=== PATIENT | female | born 1990 | race Caucasian/White ===

== ENCOUNTER 2023-09-26 10:52 | Day surgery (SDC) | payer BC ==
[2023-09-24 08:42] LABS: Specific Gravity 1.011 (1.005-1.030); Urine Bilirubin NEGATIVE (Negative); Urine Blood Negative (Negative); Urine Clarity Clear (Clear); Urine Color Light-Yellow (Yellow); Urine Glucose NEGATIVE (Negative); Urine Protein NEGATIVE (Negative); Urine Urobilinogen Normal (Normal)
[2023-09-26] MEDS: SCOPOLAMINE HYDROBROMIDE PATCH TD ONE (11:25)
[2023-09-26] MEDS: Ringers Lactate 1,000 ML IV ONE ×2 (11:25→14:30)
[2023-09-26] MEDS ORDERED: ONDANSETRON 4 MG/2 ML VIAL ONE (11:35)
[2023-09-26] MEDS ORDERED: KETAMINE HCL IN 0.9 % NACL 50 MG/5 ML SYRINGE IV ONE (11:35)
[2023-09-26] MEDS ORDERED: FENTANYL CITR 100 MCG/2 ML ONE (11:35)
[2023-09-26] MEDS ORDERED: ROCURONIUM 50 MG/5 ML VIAL IV ONE (11:35)
[2023-09-26] MEDS ORDERED: propofoL 200 MG/20 ML VIAL IV ONE (11:35)
[2023-09-26] MEDS ORDERED: LIDOCAINE 1% MPF 5 ML VIAL ONE (11:35)
[2023-09-26] MEDS ORDERED: dexAMETHasone 10 MG/ML VIAL ONE (11:35)
[2023-09-26] MEDS ORDERED: MIDAZOLAM HCL 2 MG/2 ML INJ ONE (11:36)
[2023-09-26] MEDS: CEFAZOLIN SODIUM 2 GM/VIAL ONE (11:42)
[2023-09-26] MEDS: BUPIVACAINE 0.25% PF 30 ML VIAL ONE (11:44)
[2023-09-26 12:15] LABS: Urine Specific Gravity/Preg >1.030 (1.005-1.030)
[2023-09-26] MEDS ORDERED: METHYLENE BLUE 1% 10 ML VIAL ONE (12:55)
[2023-09-26] MEDS: METHYLENE BLUE 1% 10 ML VIAL ONE (13:00)
[2023-09-26] MEDS ORDERED: NA CHLORIDE 0.9% 1,000 ML ONE (13:23)
[2023-09-26] MEDS ORDERED: KETOROLAC 30 MG/ML INJ ONE (14:47)
[2023-09-26] MEDS: MORPHINE 4 MG/ML SYR ONE ×2 (15:41→15:58)
[2023-09-26] MEDS ORDERED: PROMETHAZINE INJ 25 MG/ML AMP IV PRN (16:03)
[2023-09-26] MEDS ORDERED: IBUPROFEN 200 MG TAB PO PRN (16:03)
[2023-09-26] MEDS ORDERED: HYDROCODONE/APAP 5/325 MG TAB PO PRN (16:03)
[2023-09-26] MEDS ORDERED: MEPERIDINE HCL 25 MG/ML SYR IM PRN (16:03)
[2023-09-26] MEDS ORDERED: PROMETHAZINE 25 MG TABLET PO PRN (16:03)
--- NOTE | 2023-09-26 16:10 | P.BOP ---
Preoperative diagnosis: pelvic pain, post coital bleeding,AUB-O, secondary infertility, pelvic mass Postoperative diagnosis: same and right complex ovarian mass Primary procedure: Diag hysteroscopy,Diag laparoscopy,RSO,contained retrieval of mass -minilap Laboratory Chief: Aurelia Bermudez Estimated blood loss: 25 Specimen: right tube and ovary with washings and cyst fluid Findings: right ovarian large cystic mass+7-8 cm solid component sup/lateral Anesthesia: General Complications: None Fluids & blood products: 1000 Transferred to: Recovery Room Condition: Good
[2023-09-26] MEDS ORDERED: metroNIDAZOLE 500 MG TABLET PO SCH (16:15)
[2023-09-26 18:05] VITALS: BP 124/66; TEMP 97.9; O2SAT 97
--- NOTE | 2023-09-27 06:26 | OP ---
Date of Procedure: 09/26/2023 Surgeon: Nusrat Jesus MD Manager Clinical Pharmacy: [facility] Preoperative Diagnoses: Pelvic pain, postcoital bleeding, AUB-O (menorrhagia), secondary infertility , and pelvic mass. Postoperative Diagnoses: Pelvic pain, postcoital bleeding, AUB-O (menorrhagia), secondary infertilit y, pelvic mass, and right complex ovarian mass. Procedures Performed: 1.Diagnostic hysteroscopy. 2.Diagnostic laparoscopy. 3.Right salpingo-oophorectomy. 4.Contained retrieval of the mass in a bag using a mini lap incision in the suprapubic region in a t ransverse fashion. Anesthesia: General endotracheal. Specimens: Right tube and ovary with pelvic washings and cyst fluid. Findings: Right large ovarian cystic mass that is about 10 cm in the pelvis and then a right upper l ateral, more solid-appearing mass, 7 to 8 cm, abutting the right pelvic sidewall. The ureter had to be dissected free at the level of the pelvic brim in order to make a good window for the ovarian pedi kilo and was taken down safely. The left tube and ovary were completely unremarkable. Uterus through the hysteroscope appeared to be mostly normal inside the cavity without any masses; however, suspici on of possible bicornuate uterus, which on laparoscopic exam was still suspicious for it with a small indentation at the level of the fundus. Unable to differentiate if there was a leiomyoma or it is a bicornuate uterus. The specimen was placed in a laparoscopic 15 bag and removed without any spillage with a mini lap in the suprapubic area. The cyst was aspirated within the bag, and all care was taken to remove all the instruments and change all gloves that were used for specimen retrieval. Drains: No drains. Complications: No complications. Estimated Blood Loss: Minimal. Fluids: 1000 Urine Output: 300 Transferred to the recovery room in a stable condition. Indications: The patient is a 33-year-old, 1, para 1, incidentally found to have a pelvic ma ss on pelvic exam, confirmed on transvaginal ultrasound. Given her entire history, discussed about t he need for removal of the mass, which appeared to be a tubal mass based on its character as viewed o n the ultrasound, but she did get counseled about a paraovarian or ovarian mass, and that we would re move this based on the necessity of the tumor as visualized. (She was consented for her motivation; however, this was not performed. The left ovary and tube were unremarkable). After informed consent was re-verified in the preoperative area, she was consented for diagnostic hys teroscopy, diagnostic laparoscopy, and removal of the cyst, possible tube and ovary were all reviewed with the patient, chromotubation was to be performed if the tube has suspicion of an occlusion, poss ible endometriosis excision as needed. Procedure In Detail: After informed consent was re-verified, she was taken back to OR, placed in a s upine fashion on the operating room table. After general anesthesia was given, she was placed in nallely elvira lithotomy position using Waldo stirrups. Abdomen was prepped with ChloraPrep; vulva, vagina, and perineum with Betadine. The patient was draped in a sterile fashion. Speculum was placed to expose the cervix. Anterior lip was grasped with single-tooth tenaculum and dilated to 16-D[place]iboutian. The ravinder víctor was completely deviated to the patient's left. Diagnostic SlimLine hysteroscope was introduced a nd the cavity was unremarkable with suspicion of bicornuate uterus. No masses. Scope removed. VCar e uterine diagnostic manipulator was introduced and fixed in place. Abrams was placed to drain the bl adder and attached to a drainage bag. This area was covered. A 1 cm infraumbilical incision was made with the scalpel. Then, a left lower quadrant 5 and a suprap ubic 5 ports were placed. After placing the patient in Trendelenburg, all upper abdomen was surveyed and was unremarkable. Omentum unremarkable as well. A large pelvic mass was visualized. I was abl e to retract all the bowel superiorly into the upper pelvic area. The appendix appeared to be slight ly dilated, but no pathological erythema. Mucinous tumor was visualized. This was retracted into th e upper abdomen. A 5 left upper quadrant and later a 5 right lower quadrant ports were placed under direct vision, [facility] showed both 5 ports for access to the tumor as high as this one was. The distal round ligament at the level medial to the internal inguinal ring was cauterized. Without severing this, I went ahead and opened the peritoneum superior to it. The peritoneum was taken down by opening the both layers and coming down parallel to the IP ligament. Then, on the medial aspect, I went in to identify the internal iliac and crossing of the ureter over the bifurcation of the iliac s. The ureter was followed and the peritoneum opened between the ureter and the IP, and this dissect ion was performed into the pelvis the ureter. Once this was clear, I had an open window t o take down the uterine vessels. Then went on to identify the utero-ovarian ligament. This was ezequiel red and the tube was also taken down with the LigaSure. All the way the dissection was brought down to isolate the ovarian mass on the pedicle of the infundibulopelvic ligament. Here, this was cauteri zed with the help of bipolar LigaSure, and specimen detached and placed in the upper abdomen. The suprapubic 5 port changed to 12 port and a 15 mm bag was introduced through it. The specimen was carefully placed in the bag, entirely closed completely, and retracted through the suprapubic incisi on with the strings and left intact. Then, all the ports were removed under direct vision after thor ough irrigation and suction were performed and hemostasis was secured. No evidence of any endometrio sis was noted. Gas was desufflated. The patient was flattened out and 4 cm on each side of the suprapubic port, the incision was extended on the skin, subcutaneous tissue, fascia and the rectus muscle was in the midline. They w ere dissected from the midline underneath the fascia. Then, the peritoneum was entered through the p ort site and the incision extended, and the bag was opened out to the outside and held high with the Jen clamps as well as hemostats. Then, a small puncture wound was made on the ovarian cyst. Initi ally, this was made on the firmer part of the tumor, but then clearly once this was rotated, I was ab le to get the cyst to drain. Once all the fluid had drained, then the specimen was retrieved through the incision without any rupture spillage. The suction tip, including all the instruments and glove s were all removed and exchanged to fresh ones. The peritoneum was closed with the help of 3-0 Monocryl, the rectus muscles brought to with 3-0 chrom ic, fascial incision with 0 Vicryl in a continuous running fashion, subcutaneous tissues with 3-0 chr omic, and then skin with 4-0 Monocryl. All other skin incisions were closed with the help of 5-0 Mon ocryl after closing the umbilical fascial site with 0 Vicryl's. Steri-Strips and gauze were placed. The manipulator and the Abrams were removed. Instrument, needle, and sponge counts were correct at th e end of the case. The patient and the were debriefed about her procedure postoperatively. She will follow up in 1 week, path results. Baseline CA-125 as needed. Referral to oncologist if it is borderline or malignant cancer. If it is benign, then she just needs surveillance on the other o vary without any further intervention, and we can plan to do an HSG or refer her to an infertility sp ecialist. TANISHA/MELVIN Voice ID: [id number] Report ID: [id number]
== END 2023-09-26 17:25 | disposition home or self-care (01) ==
LOC: OR 10:52
PROVIDERS: ATTEND Obstetrics & Gynecology
PROC: 0UT04ZZ Resection of Right Ovary, Percutaneous Endoscopic Approach (ICD-10-PCS; 2023-09-26)
PROC: 0UJD8ZZ Inspection of Uterus and Cervix, Via Natural or Artificial Opening Endoscopic (ICD-10-PCS; 2023-09-26)
PROC: 0WBH0ZZ Excision of Retroperitoneum, Open Approach (ICD-10-PCS; 2023-09-26)
PROC: 0UT54ZZ Resection of Right Fallopian Tube, Percutaneous Endoscopic Approach (ICD-10-PCS; principal; 2023-09-26 12:00)
DX: D27.0 Benign neoplasm of right ovary (principal); R10.2 Pelvic and perineal pain; N92.0 Excessive and frequent menstruation with regular cycle; N93.0 Postcoital and contact bleeding; N97.9 Female infertility, unspecified
CPT/HCPCS: 58661; 58555; 22903; 86900; 86850; 81025; 86901; 88304; 88305; 81003; J2704; J2001; J2250; J3010; J1100; J2405; J7120 ×2; J7030